=== PATIENT | female | born 1960 | race Asian ===

== ENCOUNTER 2018-07-31 14:37 | Emergency (ER) | payer BC ==
[~2018-07-31] VITALS: Ht 172.7 cm; Wt 70.3 kg
[2018-07-31 14:53] VITALS: BP_SYST 147
[2018-07-31] MEDS ORDERED: SODIUM BICARBONATE 8.4% VIAL 50 MEQ/50 ML VIAL INJ ONE (17:15)
[2018-07-31] MEDS ORDERED: BACITRACIN 1 GM OINT TP ONE (17:15)
[2018-07-31] MEDS ORDERED: LIDOCAINE 1% 10 MG/ML, 20 ML MDV INJ ONE (17:15)
[2018-07-31] MEDS ORDERED: DIPH-TET-PERTUS Vaccine 0.5 ML VIAL (ADACEL) I.M. ONE (17:30)
[2018-07-31 19:00] VITALS: BP_SYST 144
== END 2018-07-31 19:00 | disposition home or self-care (01) ==
LOC: SED 14:37
DX: S61.012A Laceration without foreign body of left thumb without damage to nail, initial encounter (principal); Z85.3 Personal history of malignant neoplasm of breast; R03.0 Elevated blood-pressure reading, without diagnosis of hypertension; W26.0XXA Contact with knife, initial encounter; Y93.89 Activity, other specified; Y92.89 Other specified places as the place of occurrence of the external cause; Y99.8 Other external cause status
CPT/HCPCS: 12001; 90471; 90715; 99283; J2001